=== PATIENT | male | born 1950 | race Caucasian/White ===

== ENCOUNTER 2018-12-03 12:56 | Emergency (ER) | payer OTHER, BC ==
[~2018-12-03] VITALS: Ht 167.6 cm; Wt 119.7 kg
[2018-12-03] MEDS ORDERED: LIPITOR20 MG (13:39)
[2018-12-03] MEDS ORDERED: AVAPRO300 MG (13:40)
[2018-12-03] MEDS ORDERED: EPLERENONE25 MG (13:40)
[2018-12-03] MEDS ORDERED: FENOFIBRATE145 MG (13:40)
[2018-12-03] MEDS ORDERED: IPRATROPIUM BRO30 ML (13:41)
[2018-12-03] MEDS ORDERED: MAGNESIUM400 MG (13:41)
[2018-12-03] MEDS ORDERED: METFORMIN HCL500 MG (13:41)
[2018-12-03] MEDS ORDERED: PRILOSEC OTC20 MG (13:42)
[2018-12-03] MEDS ORDERED: TOPROL XL100 MG (13:42)
[2018-12-03] MEDS ORDERED: OMEGA-31000 MG (13:42)
[2018-12-03] MEDS ORDERED: MOMETASONE FURO15 G1 (13:42)
[2018-12-03] MEDS ORDERED: SILDENAFIL CITR50 MG (13:43)
[2018-12-03] MEDS ORDERED: PRADAXA150 MG (13:43)
[2018-12-03] MEDS ORDERED: REPAGLINIDE2 MG (13:43)
[2018-12-03] MEDS ORDERED: PENTYLENE GLY4000 ML (13:44)
== END 2018-12-04 19:37 | disposition designated cancer center or children's hospital (05) ==
LOC: ER 12:56
DX: I61.8 Other nontraumatic intracerebral hemorrhage (principal); R41.0 Disorientation, unspecified; I10 Essential (primary) hypertension; I48.91 Unspecified atrial fibrillation
CPT/HCPCS: 70551